=== PATIENT | male | born 1955 | race Caucasian/White ===

== ENCOUNTER 2020-05-27 10:25 | Outpatient (CLI) | payer MEDICARE, BC | END 2020-05-27 10:26 | disposition EMS.NT | LOC: EMS 10:25 | PROVIDERS: ATTEND Surgery | DX: K62.89 Other specified diseases of anus and rectum (principal); K59.00 Constipation, unspecified ==

== ENCOUNTER 2020-05-27 11:36 | Emergency (ER) | payer MEDICARE, BC ==
--- NOTE | 2020-05-27 14:48 | ED Physician Documentation ---
PD HPI ABD PAIN - Stated complaint Stated Complaint: CONSTIPATION, RECTAL PX - Chief complaint Chief Complaint: Abd Pain - History obtained from History obtained from: Patient - History of Present Illness Timing - onset: Today Timing - duration: Days Timing - details: Gradual onset Pain level max: 9 Pain level now: 0 Quality: Aching, Pain Location: Other (rectal) Improved by: Other (bowel movement) Worsened by: Other (constipation) Associated symptoms: No: Fever, Nausea, Vomiting, Hematemesis, Diarrhea, Constipation Similar symptoms before: Has not had sx before Recently seen: Not recently seen - Additional information Additional information: Patient states that he has been constipated and feels like he needs to have a bowel movement. He had a large bowel movement just before being called back to the emergency department from the waiting room. Symptoms have now resolved. Review of Systems Constitutional: denies: Fever, Chills Nose: denies: Rhinorrhea / runny nose, Congestion Throat: denies: Sore throat Cardiac: denies: Chest pain / pressure Respiratory: denies: Cough GI: reports: Constipation. denies: Nausea, Vomiting, Diarrhea Skin: denies: Rash Musculoskeletal: denies: Neck pain PD PAST MEDICAL HISTORY - Past Medical History Past Medical History: No - Past Surgical History Past Surgical History: No - Present Medications Home Medications: Ambulatory Orders Medication Instructions Recorded Confirmed Magnesium Citrate 296 ml PO ONCE PRN #1 bottle 05/27/20 Polyethylene Glycol 3350 [Miralax] 17 gm PO DAILY PRN #1 bottle 05/27/20 - Allergies Allergies/Adverse Reactions: Allergies Allergy/AdvReac Type Severity Reaction Status Date / Time No Known Drug Allergies Allergy Verified 05/27/20 11:43 - Living Situation Living Situation: reports: With family Living Arrangement: reports: At home - Social History Does the pt have substance abuse?: No PD ED PE NORMAL - Vitals Vital signs reviewed: Yes - General General: Alert and oriented X 3, No acute distress - HEENT HEENT: Moist mucous membranes - Neck Neck: Supple, no meningeal sign - Cardiac Cardiac: RRR - Respiratory Respiratory: No respiratory distress, Clear bilaterally - Abdomen Abdomen: Soft, Non tender, Non distended - Rectal Rectal: Other (normal rectal exam) - Derm Derm: Warm and dry - Neuro Neuro: Alert and oriented X 3 - Psych Psych: Normal mood, Normal affect Results - Vitals Vitals: Vital Signs - 24 hr 05/27/20 05/27/20 11:43 15:08 Temperature 36.6 C 36.8 C Heart Rate 93 91 Respiratory 16 16 Rate Blood Pressure 144/95 H 146/80 H O2 Saturation 100 97 Oxygen O2 Source Room air PD MEDICAL DECISION MAKING - ED course Complexity details: considered differential, d/w patient ED course: Patient with constipation. Large bowel movement prior to entering the emergency department. Feels much better. No acute findings on rectal exam. Last colonoscopy was approximately 5 years ago. He states that that was normal. We will have him follow-up with his doctor for further care. We will place him on MiraLAX and magnesium citrate for home as well. No vomiting. No evidence of bowel obstruction. Patient counseled regarding signs and symptoms for which I believe and urgent re-evaluation would be necessary. Patient with good understanding of and agreement to plan and is comfortable going home at this time This document was made in part using voice recognition software. While efforts are made to proofread this document, sound alike and grammatical errors may occur. Departure - Departure Disposition: 01 Home, Self Care Clinical Impression: Constipation Qualifiers: Constipation type: unspecified constipation type Qualified Code(s): K59.00 - Constipation, unspecified Condition: Good Instructions: ED Constipation Follow-Up: your,doctor in 1 week [Other] Prescriptions: Magnesium Citrate 296 ml PO ONCE PRN #1 bottle PRN Reason: Constipation Polyethylene Glycol 3350 [Miralax] 17 gm PO DAILY PRN #1 bottle PRN Reason: Constipation Comments: Drink plenty of water. Return if you worsen. Follow-up with your doctor for further care. You should have a repeat colonoscopy as it has been greater than 5 years since your last colonoscopy. Discharge Date/Time: 05/27/20 15:08
[2020-05-27 15:09] VITALS: BP 146/80
== END 2020-05-27 15:08 | disposition home or self-care (01) ==
LOC: ED 11:36
DX: K59.00 Constipation, unspecified (principal)
CPT/HCPCS: 99282; 99284

== ENCOUNTER 2024-05-13 08:01 | Outpatient (CLI) | payer MEDICARE | END 2024-05-13 08:02 | disposition home or self-care (01) | LOC: LAB.S 08:01 | PROVIDERS: ATTEND Urology | DX: C66.9 Malignant neoplasm of unspecified ureter (principal) | CPT/HCPCS: 87086 ==